=== PATIENT | female | born 1975 | race Two or more races ===

== ENCOUNTER 2022-10-14 06:15 | Day surgery (SDC) | payer OTHER ==
[~2022-10-14] VITALS: Ht 157.5 cm; Wt 52.2 kg
[2022-10-14] MEDS ORDERED: KETO10TA2 PO (09:55)
[2022-10-14] MEDS ORDERED: DERMOPLAST PAIN78 GM TOP (09:56)
[2022-10-14] MEDS ORDERED: PERCOCET 5-3251 EACH PO (09:56)
[2022-10-14] MEDS ORDERED: NEURONTIN300 MG PO (09:56)
== END 2022-10-14 17:20 | disposition home or self-care (01) ==
LOC: CIR.AMB 06:15
PROVIDERS: ATTEND Surgery
DX: K64.2 Third degree hemorrhoids (principal); K62.2 Anal prolapse; N81.6 Rectocele; K64.5 Perianal venous thrombosis; K62.5 Hemorrhage of anus and rectum; Z20.822 Contact with and (suspected) exposure to COVID-19